=== PATIENT | female | born 2000 | race Caucasian/White ===

== ENCOUNTER 2022-06-13 06:50 | Emergency (ER) | payer MEDICAID ==
[~2022-06-13] VITALS: Ht 167.6 cm; Wt 95.5 kg
[2022-06-13] MEDS ORDERED: DOXYCYCLINE 100MG CAPSULE PO STA ×2 (07:49→13:10)
[2022-06-13] MEDS ORDERED: LIDOcaine 1% w/EPI 1:100,000 30ml vial (MDV) IJ ONE (07:50)
[2022-06-13] MEDS ORDERED: HYDROcodone/acetaminophen 5mg/325mg tablet PO ONE (07:55)
[2022-06-13] MEDS ORDERED: naproxen 500mg tablet PO ONE (07:55)
--- NOTE | 2022-06-13 10:55 | NUR ---
RELIEVING RN FOR BREAK, PT IS RESTING QUIETLY ON GURNEY, WAITING TO HAVE I&D TO LEFT AXILLARY
[2022-06-13 10:56] VITALS: BP 107/77
[2022-06-13] MEDS ORDERED: DOXY-1 PO (13:11)
== END 2022-06-13 13:26 | disposition home or self-care (01) ==
LOC: ER 06:51
DX: L02.414 Cutaneous abscess of left upper limb (principal)
CPT/HCPCS: 10060; 99283; A6407; A6449

== ENCOUNTER 2023-04-09 21:15 | Emergency (ER) | payer MEDICAID ==
[~2023-04-09] VITALS: Ht 170.2 cm; Wt 90.9 kg
[2023-04-09 21:16] VITALS: BP 123/75
[2023-04-09 21:43] LABS: CLARITY,URINE SLIGHTLY CLOUDY (Clear); COLOR,URINE YELLOW (Yellow); GLUCOSE, URINE NEGATIVE (Neg); KETONES,URINE NEGATIVE (Neg); LEUKOCYTE ESTERASE ,URINE LARGE (Neg); NITRITES, URINE NEGATIVE (Neg); OCCULT BLOOD,URINE TRACE-INTACT (Neg); PROTEIN,URINE NEGATIVE (Neg); UROBILINOGEN,URINE 0.2 E.U/dL (0.2-1.0)
[2023-04-09 21:51] LABS: UA COLLECTION TYPE NON-SPECIFIED
[2023-04-09 21:53] LABS: WBC,URINE 20-30 /HPF (0-4)
[2023-04-09 21:54] LABS: AMORPHOUS PHOSPHATES 2+; BACTERIA,URINE 3+ /HPF (Neg); MUCUS STRANDS FEW /LPF (Neg); SQUAMOUS EPITHELIAL CELL,UR FEW /LPF (FEW); TRANSITIONAL EPI CELLS,URINE FEW /HPF
[2023-04-09] MEDS ORDERED: sulfamethoxazole/trimethoprim DS (800/160mg) tablet PO ONE (22:50)
[2023-04-09] MEDS ORDERED: SULF1TAB49 PO (22:51)
== END 2023-04-09 23:16 | disposition home or self-care (01) ==
LOC: ER 21:15
DX: N39.0 Urinary tract infection, site not specified (principal); F17.200 Nicotine dependence, unspecified, uncomplicated; Z91.040 Latex allergy status; Z79.899 Other long term (current) drug therapy
CPT/HCPCS: 81001; 87088; 99283